=== PATIENT | female | born 1995 | race African-American/Black ===

== ENCOUNTER 2021-01-28 20:06 | Emergency (ER) | payer SELFPAY ==
[~2021-01-28] VITALS: Ht 160 cm; Wt 61.2 kg
--- NOTE | 2021-01-28 20:27 | NUR ---
called for triage not in waiting room.
[2021-01-28 21:44] VITALS: BP 133/81
[2021-01-28] MEDS ORDERED: PANT40TA2 PO (22:25)
--- NOTE | 2021-01-28 22:56 | NUR ---
Patient discharged to home in stable condition. Written and verbal after care instructions given. Patient verbalizes understanding of instruction.
== END 2021-01-28 22:57 | disposition home or self-care (01) ==
LOC: ER 20:09
DX: F45.8 Other somatoform disorders (principal); K29.70 Gastritis, unspecified, without bleeding; Z60.2 Problems related to living alone